=== PATIENT | male | born 1955 | race Caucasian/White ===

== ENCOUNTER 2018-11-07 07:41 | Outpatient (CLI) | payer OTHER | END 2018-11-07 07:48 | disposition home or self-care (01) | LOC: LAB 07:41 | DX: N40.1 Benign prostatic hyperplasia with lower urinary tract symptoms (principal); R97.20 Elevated prostate specific antigen [PSA] ==

== ENCOUNTER 2022-05-07 08:00 | Outpatient (CLI) | payer OTHER | END 2022-05-07 08:01 | disposition home or self-care (01) | LOC: NUCLEAR 08:00 | PROVIDERS: ATTEND Orthopaedic Surgery | DX: M81.0 Age-related osteoporosis without current pathological fracture (principal) ==